=== PATIENT | male | born 1955 | race Caucasian/White ===

== ENCOUNTER → 2023-11-21 13:52 | Outpatient (REF) | payer MEDICARE, OTHER, SELFPAY | LOC: RCS 13:52 | PROVIDERS: ATTENDING PHYSICIAN Internal Medicine; FAMILY PHYSICIAN Family Medicine | DX: I10 Essential (primary) hypertension (principal); I48.21 Permanent atrial fibrillation | CPT/HCPCS: 93306 ==

== ENCOUNTER → 2024-02-20 08:59 | Outpatient (REF) | payer MEDICARE, OTHER, SELFPAY | LOC: PAVMRI 08:59 | PROVIDERS: ATTENDING PHYSICIAN Student in an Organized Health Care Education/Training Program; FAMILY PHYSICIAN Family Medicine | DX: M25.552 Pain in left hip (principal) | CPT/HCPCS: 73721 ==

== ENCOUNTER 2024-08-16 12:08 | Emergency (ER) | payer MEDICARE, OTHER, SELFPAY ==
[2024-08-16 12:32] VITALS: BP 148/93
--- NOTE | 2024-08-16 15:38 | ED.GENMED ---
History of Present Illness
General
Chief Complaint: Skin Surface Trauma
Source: patient
Exam Limitations: none
Time Seen by Provider: 08/16/24 15:03
Nursing documentation reviewed up to this point in time: agreed with
History of Present Illness
History of Present Illness:
pt is a 69 y/o M with R hand dominance
here with L fingertip laceration with a saw today at9 am when at home
pt has laceration distal fingertip left index finger
bleeding is controlled
he is on eliquis
he has no numbness/tingling/wakness
tetanus utd 2 mo ago
Past History
Past History
ED Past Medical History: HTN
ED Past Surgical History: Appendectomy
Social History
Tobacco: Former smoker
Alcohol: Former
Drug: None
Personal:
Living: with family
Employment: Employed
Review of Systems
Review of Systems
Allergies reviewed?: Yes
All Other Systems: Not applicable
Phy Exam
Physical Exam
Physical Exam:
GENERAL: Alert , in no apparent distress, comfortable at rest
HEAD: NCAT
CV: cap refill intact
NEUROLOGICAL: Alert and oriented, no focal neuro deficits, , 5/5 strength, sensation intact, ambulation slight limp right leg
SKIN: Warm and dry,
laceration through dorsal distal phalanx of the index finger through the nail plate and wraps around to palmar aspect distally to the fingertip
bleeding controlled
MUSCULOSKELETAL: distal phalanx wound index finger
bleeding controlled
full ROM of the finger
does not extend past the prox nail fold
but the laceration is vertically oriented
PSYCH: Normal and appropriate interaction.
Course
Orders/Labs/Results
Orders:
Orders
08/16/24 12:34
CR Hand - Left Min 3 Views Urgent
Comment:
Reason For Exam: injury
08/16/24 15:43
Cephalexin Monohydrate [Keflex] 500 mg PO NOW STA
08/16/24 16:16
CeFAZolin 1 GRAM [Ancef] 1 gram in 5 ml IV NOW
08/16/24 16:26
CeFAZolin 2 GRAM [Ancef] 2 grams in 10 ml IV NOW
Vital Signs
Initial and Last Documented VS:
Initial Vital Signs
Temp Pulse Resp BP Pulse Ox
36.7 C 110 20 148/93 99
08/16/24 12:32 08/16/24 12:32 08/16/24 12:32 08/16/24 12:32 08/16/24 12:32
Last Documented Vital Signs
Temp Pulse Resp BP Pulse Ox
36.7 C 89 16 117/85 98
08/16/24 12:32 08/16/24 16:41 08/16/24 16:41 08/16/24 16:41 08/16/24 16:41
Procedures
Laceration Closure
Left Distal Dorsal Second Finger(s):
Status of Wound: clean
Size of Wound in cm: 2
Description of Wound Edges: ragged and flap-well vascularized
Preparation: cleaned with saline
Anesthesia: 1% Lidocaine and Digital-Regional
Revision/Debridement: minor revision and irrigate-direct pressure
Wound exploration: explored to base- no FB
Type of Closure: single layer closure
Skin Closure Material: 4-0 nylon
Number of sutures: 4
MDM/Problems Addressed
Differential Diagnosis Includes:
hand laceration, open fracture
MDM/Problems Addressed:
69 y//o M with R hand dominance
with L index fingertip laceration saw
on ac
tetanus UTD
bleeding controlled
xrays indep reviewed by me showing fracture distl phalanx
[facility]
recommends IV ancef
irrigation
digital blck
skin closure
f/u with hand for nailb ed repair
i did place 3 suures in the skin and 1 ithrough the nail plate to keep the nail plate together
xeroform dressing applied
*Critical Care Note
Total Time (30-74mins, 75-104mins- exclusive of procedures): Not Applicable
ED Attending Note
-
Portions of this chart may have been created with voice recognition software.� Occasional wrong word or��sound alike� substitutions may have occurred due to the inherent limitations of voice recognition software.
Discharge Plan
Departure
Patient Disposition: Home (Routine Discharge)
Date of Disposition: 08/16/24
Time of Disposition: 16:20
Patient with high blood pressure during this ER visit?: No
Condition: Fair
Covid-19: Not Applicable
Discharge Problem:
Finger laceration, Open finger fracture
Instructions: Laceration Repair With Stitches (DC)
Prescriptions:
New
cephalexin 500 mg capsule
500 mg PO QID Qty: 28 0RF
No Action
lisinopril 20 MG tablet
20 mg PO DAILY
amlodipine 10 MG tablet
10 mg PO DAILY
metoprolol succinate 50 MG tablet extended release 24 hr
50 mg PO QPM
rivaroxaban [Xarelto] 20 MG tablet
20 mg PO QPM
ibuprofen [Advil] 200 MG tablet
2 tab PO PRN PRN (Reason: Pain)
Referrals:
Suleiman Rendon MD [Family Provider] -
Pratik Bonner MD [Active] - Follow up in 2-3 days
Activity Restrictions/Additional Instructions:
YOUR XRAY SHOWS A FRACTURE THROUGH THE BONE OF YOUR DISTAL PHALANX
FOLLOW UP WITH HAND DOCTOR
YOU SHOULD EITHER HEAR FROM THEM OR YOU SHOULD CALL FOR AN APPOINTMENT MONDAY
IN THE MEANTIME KEEP THE DRESSING ON UNTIL MONDAY
THEN WASH WITH MILD SOAP AND WATER AND APPLY DRESSING
KEFLEX IS THE ANTIBIOTIC TO BE TAKEN 4 TIMES A DAY FOR 7 DAYS
TYLENOL EVERY 6 HOURS FOR PAIN NEEDED
RETURN FOR ANY CONCERNS.
Interventions
Interventions:
*Risk Screen - Suicide Last Done: 08/16/24 14:35
*General Assessment Last Done: 08/16/24 12:32
*Neglect/Abuse Screening Last Done: 08/16/24 14:35
*ED COVID-19 Vaccine History Last Done: 08/16/24 14:35
*Nursing Disposition Last Done: 08/16/24 16:48
ED-Skin Assessment Last Done: 08/16/24 14:35
Discharge Date and Time
Discharge Date/Time: 08/16/24 16:48
Print Language: SRI LANKAN
[2024-08-16] MEDS: ANCEF 10 IV (16:39)
[2024-08-16 16:41] VITALS: BP 117/85
== END 2024-08-16 16:48 | disposition home or self-care (01) ==
LOC: EMR 12:08
PROVIDERS: EMERGENCY PHYSICIAN Emergency Medicine; FAMILY PHYSICIAN Family Medicine
DX: S62.631B Displaced fracture of distal phalanx of left index finger, initial encounter for open fracture (principal); W27.0XXA Contact with workbench tool, initial encounter; Z87.891 Personal history of nicotine dependence
CPT/HCPCS: 99284; 96374; 73130